=== PATIENT | male | born 1960 | race Caucasian/White ===

== ENCOUNTER 2019-11-17 09:45 | Outpatient (NON) | payer BC, SELFPAY ==
[2019-11-18 00:38] LABS: SARS-CoV-2 RNA PCR Negative
== END 2019-11-17 09:46 ==
PROVIDERS: PCP Internal Medicine; Visit Provider Nurse Practitioner
DX: Z20.828 Contact with and (suspected) exposure to other viral communicable diseases (principal); R05 Cough; R06.02 Shortness of breath
CPT/HCPCS: 87635; C9803; U0003

== ENCOUNTER 2023-01-07 07:39 | Outpatient (CLI) | payer BC, SELFPAY ==
[2023-01-07 07:53] LABS: Hematocrit 43.7 % (42.0-52.0); Hemoglobin 14.5 g/dL (14.0-18.0); Mean Corpuscular HGB Conc 33.2 g/dl (32-36); Mean Corpuscular Hemoglobin 30.9 pg (26-34); Mean Corpuscular Volume 93.2 fl (80-100); Mean Platelet Volume 9.5 fl (7.4-10.4); Platelet Count Result 215 k/mm3 (150-375); Red Blood Count 4.69 M/mm3 (4.6-6.20); Red Cell Distribution Width 13.2 % (11.5-14.5); White Blood Count 4.7 K/mm3 (4.5-10.0)
== END 2023-01-07 07:40 | disposition home or self-care (01) ==
PROVIDERS: PCP Nurse Practitioner; Visit Provider Family Medicine
DX: R79.89 Other specified abnormal findings of blood chemistry (principal)
CPT/HCPCS: 36415; 85027

== ENCOUNTER 2023-03-19 00:40 | Day surgery (SDC) | payer BC, SELFPAY ==
[2023-02-21 16:06] VITALS: BMI 27.0
--- NOTE | 2023-03-15 09:49 | SUR.PREOP ---
Patient called regarding upcoming procedure. Reviewed preop instructions, appointment times, and procedure prep.
--- NOTE | 2023-03-18 15:25 | PM.HPGS ---
History of Present Illness History of Present Illness Consent: Risks, benefits, and alternatives have been discussed and questions answered. Patient agrees to proceed with procedure. Chief complaint: neoplasm screening Narrative: Jakob Mcgill is a 62 year old male referred for colon cancer screening. His last colonoscopy was 10 years ago. Review of Systems Review of Systems: All systems reviewed & are unremarkable except as noted in HPI and below PMFSH Past Medical History Medical History COVID-19 Family History Family History Mother Hypertension Family history of diabetes mellitus in first degree relative Sibling Family history of Parkinson's disease Family history of lymphoma Acute myocardial infarction Father Family history of Parkinson's disease Family history of chronic obstructive pulmonary disease Acute myocardial infarction Social History Social History Smoking packs per day: 1 Smoking cigarettes per day: 20.0 Years smoked: 20 Smoking pack-years: 20.00 Smoking status: Former smoker Tobacco type: cigarettes Second hand tobacco smoke exposure: Yes Smoking end date: 02/12/04 Alcohol intake: current Alcohol use details: social Substance use: never Substance use type: does not use Living arrangements: with family Gender identity (if verbalized by the patient): Male Sexual Orientation (if Verbalized by the Patient): Straight or Heterosexual Spiritual care concerns: No Meds Home Medications and Allergies Home Medications Medication Instructions Recorded Confirmed Type tadalafil 5 mg tablet (Cialis) 5 mg PO DAILY 05/15/21 03/19/23 History rosuvastatin 20 mg tablet (Crestor) 20 mg PO DAILY #90 tabs 12/26/22 03/19/23 Rx Allergies Allergy/AdvReac Type Severity Reaction Status Date / Time No Known Allergies Allergy Verified 03/19/23 10:19 Exam Resp: Auscultation: clear to auscultation bilaterally Cardio: Rate: regular rate Rhythm: regular rhythm GI: GI Palp: Yes Soft to palpation and No Tenderness to palpation present (GI) Assessment and Plan Assessment and plan (1) Screening for colon cancer: Code(s): Z12.11 - Encounter for screening for malignant neoplasm of colon Status: Acute Assessment and Plan: Colonoscopy with possible biopsy or polypectomy or cautery or injection of substances.
[2023-03-19 10:22] VITALS: BP 119/82; PULSE 76; RESP 16; TEMP 36.6; O2SAT 98
--- NOTE | 2023-03-19 10:32 | P.PNAN_ITS ---
Anes - Initial Pre Proc Eval Procedure: Operation Date: 03/19/23 11:30 Proposed Procedures p Screening Colonoscopy - Austin Garcia MD Date/Time: 03/19/23 10:32 Surgeon: Austin Garcia MD Pre Op Diagnosis: neoplasm screening Patient Data Age: 62 Gender: M Height: 1.88 m Weight: 91.5 kg Last Vital Signs Temp 97.9 F 03/19/23 10:22 Pulse 76 03/19/23 10:22 Resp 16 03/19/23 10:22 BP 119/82 03/19/23 10:22 Pulse Ox 98 03/19/23 10:22 O2 Del Method Room Air 03/19/23 10:22 Allergies Allergy/AdvReac Type Severity Reaction Status Date / Time No Known Allergies Allergy Verified 03/19/23 10:19 Home Medications Medication Instructions Recorded Confirmed Type tadalafil 5 mg tablet (Cialis) 5 mg PO DAILY 05/15/21 03/19/23 History rosuvastatin 20 mg tablet (Crestor) 20 mg PO DAILY #90 tabs 12/26/22 03/19/23 Rx Patient hx anesthesia problems: none Family hx anesthesia problems: none Results Review: All pre-operative results and documents have been reviewed as part of the pre- operative evaluation. PMFSH Past Medical History Medical History COVID-19 Family History Family History Mother Hypertension Family history of diabetes mellitus in first degree relative Sibling Family history of Parkinson's disease Family history of lymphoma Acute myocardial infarction Father Family history of Parkinson's disease Family history of chronic obstructive pulmonary disease Acute myocardial infarction Social History Social History Smoking packs per day: 1 Smoking cigarettes per day: 20.0 Years smoked: 20 Smoking pack-years: 20.00 Smoking status: Former smoker Tobacco type: cigarettes Second hand tobacco smoke exposure: Yes Smoking end date: 02/12/04 Alcohol intake: current Alcohol use details: social Substance use: never Substance use type: does not use Living arrangements: with family Gender identity (if verbalized by the patient): Male Sexual Orientation (if Verbalized by the Patient): Straight or Heterosexual Spiritual care concerns: No Anes - Eval Final PreProcedure Day of Procedure 03/19/23 10:32 Patient weight: normal Heart: regular rate and rhythm Lungs: clear to auscultation Airway: Mallampati scale class II Neurological: alert and oriented Last oral intake: >/= 8 hours ASA classification: II Emergent: no Anesthetic plan: proceed Anesthesia type and monitoring: general GIVS and standard monitoring Results Review: All pre-operative results and documents have been reviewed as part of the pre- operative evaluation. Informed Consent: The patient's anesthetic plan and its attendant risks and benefits were discussed with the patient/family/POA. Questions were solicited and answers provided to the satisfaction of the patient/family/POA.
[2023-03-19] MEDS: LACTATED RINGERS 1,000 ML 150 ML IV CONT (10:37)
[2023-03-19 12:04] VITALS: BP 95/60; PULSE 68; RESP 28; O2SAT 98
[2023-03-19 12:14] VITALS: BP 108/65; PULSE 64; RESP 24; O2SAT 99
[2023-03-19 12:24] VITALS: BP 117/61; PULSE 60; RESP 30; O2SAT 99
[2023-03-19 12:36] VITALS: BP 117/61; PULSE 60; RESP 30; O2SAT 99
== END 2023-03-19 12:37 | disposition home or self-care (01) ==
PROVIDERS: PCP Nurse Practitioner; Visit Provider Internal Medicine Gastroenterology
PROC: 0DJD8ZZ Inspection of Lower Intestinal Tract, Via Natural or Artificial Opening Endoscopic (ICD-10-PCS; CPT 45378; principal; 2023-03-19 11:30)
DX: Z12.11 Encounter for screening for malignant neoplasm of colon (principal); K57.30 Diverticulosis of large intestine without perforation or abscess without bleeding; Z87.891 Personal history of nicotine dependence
CPT/HCPCS: 45378; J2704; J7120

== ENCOUNTER 2023-08-24 17:19 | Emergency (ER) | payer BC, SELFPAY ==
[2023-08-24 17:29] VITALS: BP 144/75; PULSE 73; RESP 16; TEMP 36.9; O2SAT 98
--- NOTE | 2023-08-24 17:38 | ED.SKABFB ---
HPI - Skin/Abscess/Foreign Bdy General Chief complaint: Skin/Abscess/Foreign Body Stated complaint: RASH Time Seen by Provider: 08/24/23 17:30 Source: patient, RN notes reviewed and old records reviewed Mode of arrival: ambulatory Limitations: no limitations History of Present Illness HPI narrative: patient presents to [facility] complaining of itchy rash that is spreading. He reports rash began about 3 days ago. States he had been doing yd work, came into contact with poison christa. He has been using calamine lotion and Benadryl cream, poor relief. He reports rash spreading each day. It is present on the arms, legs, trunk. Spares the face. Related Data Allergies Allergy/AdvReac Type Severity Reaction Status Date / Time No Known Allergies Allergy Verified 08/24/23 17:20 Review of Systems Review of Systems: All systems reviewed & are unremarkable except as noted in HPI and below Constitutional: Constitutional: Reports no additional constitutional complaints ENT: Reports system reviewed and no additional complaints, except as documented Cardiovascular: Cardiovascular: Reports no additional cardiovascular complaints Respiratory: Respiratory: Reports no additional respiratory complaints Gastrointestinal: Gastrointestinal: Reports no additional gastrointestinal complaints Integumentary/Breasts: Skin/Breast: Reports as per HPI and Reports rash PMFSH Past Medical History Medical History COVID-19 Family History Family History Mother Hypertension Family history of diabetes mellitus in first degree relative Sibling Family history of Parkinson's disease Family history of lymphoma Acute myocardial infarction Father Family history of Parkinson's disease Family history of chronic obstructive pulmonary disease Acute myocardial infarction Social History Social History Smoking packs per day: 1 Smoking cigarettes per day: 20.0 Years smoked: 20 Smoking pack-years: 20.00 Smoking status: Former smoker Tobacco type: cigarettes Second hand tobacco smoke exposure: Yes Smoking end date: 02/12/04 Alcohol intake: current Alcohol use details: social Substance use: never Substance use type: does not use Living arrangements: with family Gender identity (if verbalized by the patient): Male Sexual Orientation (if Verbalized by the Patient): Straight or Heterosexual Spiritual care concerns: No Comments At the time of my signature, I reviewed and agree with the nursing past medical, surgical, social, and family history. There is no relevant family history pertinent to the patient complaint. Exam Const: General: cooperative, no acute distress, alert and awake Orientation/consciousness: oriented to person, oriented to place and oriented to time HENMT: Head: normal to inspection Resp: Effort & Inspection: normal respiratory effort and able to speak in complete sentences Auscultation: clear to auscultation bilaterally, no crackles, no rales, no rhonchi and no wheezes Cardio: Palpation: normal PMI Rate: regular rate Rhythm: regular rhythm Heart sounds: S1 normal heart sound present and S2 normal heart sound present Skin: Rashes: rashes noted ( Rash consistent with contact dermatitis on limbs and trunk) Neuro: General: oriented to person, oriented to place and oriented to time Cranial nerves: Yes CN's II-XII intact bilaterally Psych: Appearance: grossly normal Thought process: Normal thought process present Insight: Good insight present (Psych) Judgement: Good judgement present (Psych) Course Course Level of Care: Express Care Visit Vital Signs Vital signs: Vital Signs Temperature 98.4 F 08/24/23 17:29 Pulse Rate 73 08/24/23 17:29 Respiratory Rate 16 08/24/23 17:29 Blood Pressure 144/75 H 08/24/23 17:
== END 2023-08-24 17:45 | disposition home or self-care (01) ==
PROVIDERS: Emergency Provider Nurse Practitioner Family; PCP Nurse Practitioner
DX: L23.7 Allergic contact dermatitis due to plants, except food (principal); Z87.891 Personal history of nicotine dependence; Z86.16 Personal history of COVID-19
CPT/HCPCS: 99213; G0463

== ENCOUNTER 2023-08-27 08:24 | Outpatient (CLI) | payer BC, SELFPAY ==
[2023-08-27 09:10] LABS: Alanine Aminotransferase 22 U/L (6-50); Albumin Level 4.4 g/dL (3.5-5.1); Alkaline Phosphatase 37 U/L (38-126); Anion Gap 8 mmol/L (4-12); Aspartate Amino Transferase 22 U/L (17-59); Bilirubin,Total 0.7 mg/dL (0.2-1.3); Blood Urea Nitrogen 22 mg/dL (9-20); Calcium 9.1 mg/dL (8.4-10.2); Carbon Dioxide 30 mmol/L (22-30); Chloride 103 mmol/L (98-107); Cholesterol 146 mg/dL (0-200); Estimated Glomerular Filt Rate > 60; Glucose 93 mg/dL (65-110); HDL Direct 66 mg/dL; Sodium 141 mmol/L (137-145); Triglycerides 62 mg/dL (<150)
[2023-08-27 09:20] LABS: LDL Cholesterol Direct 70 mg/dL
[2023-08-27 09:36] LABS: Prostate Specific Antigen 0.7 ng/mL (< OR = 4.0)
[2023-08-29 22:57] LABS: Testosterone Total 303 ng/dL (250-1100)
== END 2023-08-27 08:25 | disposition home or self-care (01) ==
LOC: ANHLAB 08:27
PROVIDERS: PCP Nurse Practitioner; Visit Provider Nurse Practitioner
DX: E78.5 Hyperlipidemia, unspecified (principal); R79.89 Other specified abnormal findings of blood chemistry; Z12.5 Encounter for screening for malignant neoplasm of prostate
CPT/HCPCS: 36415; 80053; 80061; 84153; 84403; G0103

== ENCOUNTER 2024-06-17 10:45 | Outpatient (CLI) | payer BC, SELFPAY ==
[2024-06-17 11:30] LABS: Alanine Aminotransferase 23 U/L (6-50); Albumin Level 4.3 g/dL (3.5-5.1); Alkaline Phosphatase 42 U/L (38-126); Anion Gap 5 mmol/L (4-12); Aspartate Amino Transferase 23 U/L (17-59); Bilirubin,Total 0.7 mg/dL (0.2-1.3); Blood Urea Nitrogen 15 mg/dL (9-20); Calcium 9.1 mg/dL (8.4-10.2); Carbon Dioxide 28 mmol/L (22-30); Chloride 106 mmol/L (98-107); Cholesterol 156 mg/dL (0-200); Estimated Glomerular Filt Rate > 60; Glucose 98 mg/dL (65-110); HDL Direct 55 mg/dL; Potassium 4.1 mmol/L (3.4-5.0); Sodium 139 mmol/L (137-145); Triglycerides 55 mg/dL (<150)
[2024-06-17 11:40] LABS: LDL Cholesterol Direct 68 mg/dL
[2024-06-21 11:47] LABS: Testosterone Total 499 ng/dL (250-1100)
== END 2024-06-17 10:46 | disposition home or self-care (01) ==
LOC: ANHLAB 10:46
PROVIDERS: PCP Nurse Practitioner; Visit Provider Nurse Practitioner
DX: E78.5 Hyperlipidemia, unspecified (principal); R79.89 Other specified abnormal findings of blood chemistry
CPT/HCPCS: 36415; 80053; 80061; 84403

== ENCOUNTER 2024-07-05 07:12 | Emergency (ER) | payer BC, SELFPAY ==
[2024-07-05 07:05] VITALS: BP 136/76; PULSE 69; RESP 18; TEMP 36.7; O2SAT 97
--- NOTE | 2024-07-05 07:29 | ED_ITS ---
HPI - General Adult General Chief complaint: Extremity Problem,Nontraumatic Stated complaint: LLE pain History of Present Illness HPI narrative: 63-year-old male present to the emergency department for evaluation for left back pain that radiates down his left lower leg. Patient states he felt fine when he woke up this morning but did begin to have some tightness in the left hip and left back as he was getting ready for work. Patient states that the tightness began to worsen as he was getting ready. Patient states the pain does start at the left buttock and radiates down the leg intermittently. Patient states he does have some intermittent tingling down the left leg. Patient denies any change in bowel or bladder habits. Patient denies any specific falls or injuries. Patient states he did do some increased activity in the yd where he was crawling around and doing some weeding just a few days ago on suspects that this may have led to the injury. Patient is not diabetic. Patient denies any previous history of back surgery. Related Data Allergies Allergy/AdvReac Type Severity Reaction Status Date / Time No Known Allergies Allergy Verified 07/05/24 07:33 Review of Systems Review of Systems: All systems reviewed & are unremarkable except as noted in HPI and below PMFSH Past Medical History Medical History (Updated 07/05/24 @ 07:33 by Paul Lawson MD) Low testosterone level in male Mixed hyperlipidemia BMI 26.0-26.9,adult COVID-19 Family History Family History (Updated 06/26/24 @ 07:31 by PHI Garsia) Mother Hypertension Family history of diabetes mellitus in first degree relative Diabetes mellitus Melanoma Sibling Family history of Parkinson's disease Family history of lymphoma Acute myocardial infarction Hypertension Father Family history of Parkinson's disease Family history of chronic obstructive pulmonary disease Acute myocardial infarction Cerebrovascular accident Heart disease Social History Social History (Updated 06/26/24 @ 07:32 by PHI Garsia) Smoking packs per day: 1 Smoking cigarettes per day: 20.0 Years smoked: 20 Smoking pack-years: 20.00 Smoking status: Former smoker Tobacco type: cigarettes Second hand tobacco smoke exposure: Yes Smoking end date: 02/12/04 Alcohol intake: current Alcohol use details: social Substance use: never Substance use type: does not use Do You Feel Safe in your Home?: Yes Lack of Transportation: No Lack of Food: Never True Current Housing: I Have Housing Concerned About Future Housing: No Difficulty Paying Gas/Electric Bills: No Difficulty Paying for Meds: No Currently Unemployed: No Education: High School Diploma/GED Living arrangements: with family Occupation/Education: occupation Additional occupation/education comments: steel work Gender identity (if verbalized by the patient): Male Sexual Orientation (if Verbalized by the Patient): Straight or Heterosexual Spiritual care concerns: No Exam Narrative: APPEARANCE: Well appearing, no pain, no distress, well-nourished. HEAD: normocephalic, atraumatic. EYES: PERRLA/EOMI, conjunctivae clear. NOSE: Normal no drainage EARS:TMS clear with good light reflex. THROAT: Pharynx clear, no exudate. NECK: Supple. No adenopathy, no masses. RESPIRATORY: Airway patent, respirations nonlabored. Clear to auscultation bilaterally, no rales, rhonchi, wheezing. CARDIOVASCULAR: Regular rate and rhythm without murmurs rubs or gallops. ABDOMINAL: Soft, nontender, nondistended, normal bowel sounds MUSCULOSKELETAL: Left buttock tenderness and pain with lifting left leg NEURO: Alert. Cranial nerves II through XII intact. Good gait. Good coordination. Largely intact for lower legs bilaterally SKIN: Warm, dry. Normal Color. No rash on lower back, buttock Course Vital Signs Vital signs: Vital Signs Temperature 98.1 F 07/05/24 07:05 Pulse Rate 69 07/05/24 07:05 Respiratory Rate 18 07/05/24 07:05 Blood Pressure 136/76 07/05/24 07:05 Pulse Oximetry 97 07/05/24 07:05 Oxygen Delivery Room Air 07/05/24 07:05 Temperature 98.1 F 07/05/24 07:05 Pulse Rate 69 07/05/24 07:05 Respiratory Rate 18 07/05/24 07:05 Blood Pressure 136/76 07/05/24 07:05 Pulse Oximetry 97 07/05/24 07:05 Oxygen Delivery Room Air 07/05/24 07:05 Medical Decision Making [facility] Narrative Medical decision making narrative: 63-year-old male presents emergency department for evaluation for back pain that radiates down his left leg. Patient is neurologically intact on exam. Do suspect sciatica. Patient denies any specific incident that injury or falls. Low yield for getting imaging at this time. Patient is not diabetic will be started on Medrol Dosepak. Patient was provided IM Toradol, p.o. Flexeril p.o. Tabor in the emergency department. Differential Diagnosis Differential Diagnosis: Sciatica, back pain, back strain, shingles Vital Signs Vital Signs: Vital Signs Temperature 98.1 F 07/05/24 07:05 Pulse Rate 69 07/05/24 07:05 Respiratory Rate 18 07/05/24 07:05 Blood Pressure 136/76 07/05/24 07:05 Pulse Oximetry 97 07/05/24 07:05 Oxygen Delivery Room Air 07/05/24 07:05 Temperature 98.1 F 07/05/24 07:05 Pulse Rate 69 07/05/24 07:05 Respiratory Rate 18 07/05/24 07:05 Blood Pressure 136/76 07/05/24 07:05 Pulse Oximetry 97 07/05/24 07:05 Oxygen Delivery Room Air 07/05/24 07:05 Discharge Plan Discharge Clinical Impression: Sciatica Patient Disposition: Home Condition: Stable Instructions: Antibiotic Form, Sciatica (ED) Additional Instructions: Ibuprofen for pain call scheduled. Tabor as needed for additional pain control. Medrol Dosepak as directed until completed. Flexeril for muscle spasm. Have close follow-up with your primary care physician. If you have any worsening symptoms then please call or return to the emergency department. Patient Language: Nepali Prescriptions: New cyclobenzaprine 10 mg tablet 10 mg PO BID PRN (Reason: muscle spasm) Qty: 14 0RF hydrocodone-acetaminophen 5-325 mg tablet 1 tablet PO Q12H PRN (Reason: pain) Qty: 14 0RF methylprednisolone [Medrol (Dave)] 4 mg tablets,dose pack See Rx Instructions .ROUTE .COMPLEX Qty: 21 0RF Rx Instructions: for 6 days No Action pantoprazole 40 mg tablet,delayed release (DR/EC) 40 mg PO QAM Qty: 30 5RF rosuvastatin 20 mg tablet 20 mg PO DAILY Qty: 90 3RF tadalafil 10 mg tablet 10 mg PO DAILY Qty: 90 2RF Rx Instructions: administer approximately 30min before sexual activity; do not use more than 1 dose per 24hrs Follow-up/Referrals: Bryant Turk, [employer] [Primary Care Provider] -
[2024-07-05] MEDS: HYDROcodone/acetaminophen (*CRX) 5-325 MG TABLET 1 TAB PO (07:33)
[2024-07-05] MEDS: CYCLOBENZAPRINE HCL 10 MG TABLET PO (07:33)
== END 2024-07-05 08:08 | disposition home or self-care (01) ==
LOC: ANHED 07:38
PROVIDERS: Emergency Provider Emergency Medicine; PCP Nurse Practitioner
DX: M54.30 Sciatica, unspecified side (principal)
CPT/HCPCS: 99283; A9270

== ENCOUNTER 2024-07-23 08:36 | Outpatient (CLI) | payer BC, SELFPAY ==
--- NOTE | ~2024-07-23 | MR_ITS ---
MRI of the lumbar spine Clinical History: Radiculopathy Technique: Axial T2-weighted images, and sagittal T1-weighted, T2-weighted, and and T2 fat-sat images were acquired. Following intravenous administration of 20 cc MultiHance gadolinium, T1-weighted fat- sat imaging was performed in the axial and sagittal planes. Findings: There is no fracture or subluxation of the lumbar spine. Vertebral bodies maintain normal h eight and alignment. No bone marrow signal abnormality seen. At L1-L2, L2-L3, L3-L4, the intervertebral discs maintain normal signal and position. No disc bulge o r herniation at these levels. No spinal canal stenosis or neural foraminal narrowing at these levels. At L4-L5, there is mild disc desiccation with mild diffuse disc bulge. No althea spinal canal stenosis . There is moderate to advanced left neural foraminal narrowing, and severe right neural foraminal na rrowing. At L5-S1, there is diffuse disc bulge. There is superimposed left paracentral disc extrusion extendin g inferiorly behind the S1 vertebral body, probably impinging the left-sided S1-S2 level nerve root o n the left side. There is severe right neural foraminal narrowing, and moderate to severe left neural foraminal narrowing at this level. No canal stenosis. Paravertebral soft tissues are unremarkable. No abnormal postcontrast enhancement identified. Impression: Large left paracentral disc extrusion at L5-S1 extending inferiorly behind the S1 vertebral body, and impinging the left-sided S1-S2 level nerve root. Advanced bilateral neural foraminal narrowing at L4-L5 and L5-S1, as detailed above. Reviewed, dictated and finalized at [facility]. Impression: Large left paracentral disc extrusion at L5-S1 extending inferiorly behind the S1 vertebral body, and impinging the left-sided S1-S2 level nerve root. Advanced bilateral neural foraminal narrowing at L4-L5 and L5-S1, as detailed nataliia greenfield.
== END 2024-07-23 08:37 | disposition home or self-care (01) ==
PROVIDERS: PCP Nurse Practitioner; Visit Provider Nurse Practitioner
DX: M54.16 Radiculopathy, lumbar region (principal); M51.379 Other intervertebral disc degeneration, lumbosacral region without mention of lumbar back pain or lower extremity pain; M48.07 Spinal stenosis, lumbosacral region
CPT/HCPCS: 72149; A9577

== ENCOUNTER 2024-12-30 07:04 | Outpatient (CLI) | payer BC, SELFPAY ==
[2024-12-30 08:11] LABS: Alanine Aminotransferase 21 U/L (6-50); Albumin Level 4.3 g/dL (3.5-5.1); Alkaline Phosphatase 44 U/L (38-126); Anion Gap 7 mmol/L (4-12); Aspartate Amino Transferase 30 U/L (17-59); Bilirubin,Total 1.1 mg/dL (0.2-1.3); Blood Urea Nitrogen 20 mg/dL (9-20); Calcium 9.0 mg/dL (8.4-10.2); Carbon Dioxide 28 mmol/L (22-30); Chloride 104 mmol/L (98-107); Cholesterol 185 mg/dL (0-200); Estimated Glomerular Filt Rate > 60; Glucose 106 mg/dL (65-110); HDL Direct 53 mg/dL; Potassium 3.9 mmol/L (3.4-5.0); Sodium 139 mmol/L (137-145); Total Protein 7.1 g/dL (6.3-8.2); Triglycerides 101 mg/dL (<150)
[2024-12-30 08:48] LABS: Prostate Specific Antigen 0.7 ng/mL (< OR = 4.0)
== END 2024-12-30 07:05 | disposition home or self-care (01) ==
LOC: ANHLAB 07:05
PROVIDERS: PCP Nurse Practitioner; Visit Provider Nurse Practitioner
DX: Z12.5 Encounter for screening for malignant neoplasm of prostate (principal); E78.5 Hyperlipidemia, unspecified
CPT/HCPCS: 36415; 80053; 80061; 84153; G0103

== ENCOUNTER 2025-01-18 08:20 | Outpatient (CLI) | payer BC, SELFPAY ==
--- NOTE | ~2025-01-18 | US_ITS ---
EXAMINATION: US aorta, 01/18/2025 8:30 [facility] HISTORY: Z82.49 - Family history of ischemic heart disease and oth... Comparison: None Technique: Oneal-scale and color Doppler images were obtained. Findings: Minimal scattered plaque identified, no aneurysm. The visualized common iliac arteries are unremarkable. IMPRESSION: No aneurysm identified Reviewed, dictated and finalized at location [facility] IMPRESSION: No aneurysm identified
== END 2025-01-18 08:21 | disposition home or self-care (01) ==
LOC: MICIMG 08:20
PROVIDERS: PCP Nurse Practitioner; Visit Provider Nurse Practitioner
DX: Z87.891 Personal history of nicotine dependence (principal); Z82.49 Family history of ischemic heart disease and other diseases of the circulatory system
CPT/HCPCS: 76775